=== PATIENT | male | born 1930 | race Caucasian/White ===

== ENCOUNTER 2016-09-11 11:35 | Inpatient (IN) | payer OTHER ==
--- NOTE | ~2016-09-11 | OP ---
Record Of Operation [facility] [address] [place]. [address] NAME: OLIVIER WILEY : 29 STATUS : ADM IN PAT#: [id number] AGE: 86 ADM/REG DATE : 09/11/16 MR#: [id number] REPORT SERV DATE: 09/17/16 DICTATED BY: REVIN JARA DATE: 09/16/16 REPORT STATUS : Draft TRANSCRIBED BY: MODL DATE: 09/16/16 DATE OF PROCEDURE: 09/14/2016 SURGEON: Dr. Ervin Jara. RESIDENT SURGEON: Ruddy Ordaz MD. PREOPERATIVE DIAGNOSIS: Incarcerated right inguinal hernia. POSTOPERATIVE DIAGNOSIS: Incarcerated right indirect inguinal hernia. PROCEDURE: Laparoscopic right inguinal hernia repair with mesh. COMPLICATIONS: None. ANESTHESIA: General. ESTIMATED BLOOD LOSS: 10 mL. FLUIDS: Approximately 1 L of crystalloid. INDICATION FOR PROCEDURES: An 86-year-old male who presented with small-bowel obstruction and right inguinal hernia. Right inguinal hernia was reducible; however, it was only transiently reproduced in the ER. It became incarcerated while being hospitalized. Once his electrolyte abnormalities and INR were resolved, patient was consented for operative repair of his right inguinal hernia. Risks, benefits, and alternatives were discussed at length with the patient, patient wished to proceed. DESCRIPTION OF OPERATION: After informed consent was obtained, the patient was brought back to the operating suite, placed in supine position. The patient was prepped and draped in normal sterile fashion after general endotracheal anesthesia. Infraumbilical transverse incision was made, and blunt dissection was carried down to the anterior fascia, the anterior fascia was sharply incised. Once the anterior fascia was sharply incised, the rectus muscle was retracted anteriorly and the space between the rectus muscle and peritoneum was created. A dissecting balloon was placed within the space around the pubis and the dissecting balloon was insufflated. This was done with the camera in place. Once the dissecting balloon was used and it was removed and a 10 mm balloon trocar was placed within the stay. The preperitoneal space was then insufflated. There was good inflation. The patient tolerated the insufflation. Two 5 mm trocars were placed in the midline in the suprapubic region. The was identified laterally just above the inguinal ligament. The indirect hernia lateral to the epigastric vessels were identified. The graspers were used to reduce the hernia contents. This hernia contained the loops of bowel. Once this was reduced back into the abdomen, the hernia sac was intact. Contents were reduced. An Endoloop was placed on the proximal aspect of the hernia sac and secured. Once this was done, the hernia sac was completely freed up off the cord structures. A piece of mesh was placed within the preperitoneal space. The mesh was oriented to cover the Record Of Operation [address] [address] NAME: OLIVIER WILEY : 29 STATUS : ADM IN PAT#: [id number] AGE: 86 ADM/REG DATE : 09/11/16 MR#: [id number] REPORT SERV DATE: 09/17/16 DICTATED BY: ERVIN JARA DATE: 09/16/16 REPORT STATUS : Draft TRANSCRIBED BY: JONATAN DATE: 09/16/16 internal inguinal ring as well as the direct and femoral spaces. The patient had no direct or femoral component to his hernia. A suture tacker was used to secure the mesh to the pubis and to anteriorly and lateral. Mesh tacked in good position, the pneumo was released. Trocars were then removed. The patient did have some air released into his pneumoperitoneum, so the peritoneum was incised at the umbilical incision to release the pneumoperitoneum. Once this was done, the umbilical incision was closed with 0 Vicryl. The skin incisions were closed with 4-0 Monocryl. Patient tolerated the procedure well, transferred to recovery in stable condition. DICTATED BY: Ruddy Ordaz MD CB/JONATAN Ervin Jara M.D. / [id number] CC: MD Abelardo Bah M.D.
--- NOTE | ~2016-09-11 | DS ---
Discharge Summary [facility] [address] [place]. [address] NAME: OLIVIER WILEY : 29 STATUS : DIS IN PAT#: [id number] AGE: 86 ADM/REG DATE : 09/11/16 MR#: [id number] REPORT SERV DATE: 09/18/16 DICTATED BY: ABDIRAHMAN DEAN DATE: 09/17/16 REPORT STATUS : Draft TRANSCRIBED BY: MODL DATE: 09/17/16 ADMISSION DATE: 09/11/2016 DISCHARGE DATE: 09/17/2016 DISCHARGE DIAGNOSES: 1. Partial small bowel obstruction, status post repair of incarcerated right inguinal hernia, postoperative day #3. 2. Acute kidney injury, resolved. 3. Hyperkalemia, resolved. 4. Paroxysmal atrial fibrillation, the patient had been on Coumadin, which has been resumed. 5. 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 Marvin York. 6. 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 CONSULTANTS: General Surgery. PROCEDURES: Repair of incarcerated right inguinal hernia performed on 09/14/2016. HOSPITAL COURSE: This is an 86-year-old gentleman with multiple past medical history as mentioned above who was admitted to the hospital with partial small bowel obstruction due to an incarcerated right inguinal hernia. For details, please refer to excellent H and P dictated by Dr. Nemesio Jones. In summary, the patient was admitted and was seen by General Surgery. The patient was treated with IV fluid hydration as well as NG tube decompression, however, the patient failed to respond. Decision was made by the General Surgery to take the patient to the OR for surgical repair of the incarcerated right inguinal hernia. In the meantime, the patient was medically optimized for the acute kidney injury as well as hyperkalemia that was associated with the acute kidney injury. The patient's coagulopathy from Coumadin was also reversed with vitamin K. The patient underwent repair of the right incarcerated inguinal hernia on 09/14/2016, and the patient tolerated the surgery really well. The patient actually showed fairly rapid recovery from the surgery, and by the second day after surgery, the patient was able to have a bowel movement as well as tolerate p.o. intake. On postop day #3, the patient was cleared for discharge from General Surgery. The patient is now being discharged home with close outpatient followup plans. Obviously, the patient does have quite a few underlying medical issues including severe peripheral artery disease with gangrene of his extremities. The patient will be seen and followed by Dr. Marvin York as an outpatient as the patient's peripheral gangrene is actually quite stable at this point in time. The patient is being discharged back home with home health. Also, the patient's Coumadin will be resumed. DISPOSITION: Home. DISCHARGE MEDICATIONS: No changes. FOLLOWUP: 1. Please follow up with PCP in the next one to two weeks. Discharge Summary [address] [address] NAME: OLIVIER WILEY : 29 STATUS : DIS IN PAT#: [id number] AGE: 86 ADM/REG DATE : 09/11/16 MR#: [id number] REPORT SERV DATE: 09/18/16 DICTATED BY: ABDIRAHMAN DEAN DATE: 09/17/16 REPORT STATUS : Draft TRANSCRIBED BY: JONATAN DATE: 09/17/16 2. Please follow up with Dr. Marvin York in the next two to three weeks. 3. Please follow up with Dr. Jara in the next two to three weeks. A total of 30 minutes spent in coordinating this patient's discharge today. DICTATED BY: Abdirahman Dean MD [facility]/JONATAN Abdirahman Dean MD / [id number] CC: MD Abelardo Bah M.D.
--- NOTE | ~2016-09-11 | HP ---
History And Physical [place] [id number] [facility] [place]. [address] NAME: OLIVIER HUGGINS : 29 STATUS : ADM IN PAT#: [id number] AGE: 86 ADM/REG DATE : 09/11/16 MR#: [id number] REPORT SERV DATE: 09/11/16 DICTATED BY: DATE: REPORT STATUS : Draft TRANSCRIBED BY: MODL DATE: 09/11/16 DATE OF ADMISSION: 09/11/2016 The [facility], attending Dr. Nemesio Jones. CHIEF COMPLAINT: Nausea, vomiting, diarrhea, abdominal pain. HISTORY OF PRESENT ILLNESS: Mr. Huggins is a pleasant 86-year-old white male, brought by family today because he has had minimal oral intake since Wednesday. Symptoms started on Wednesday with acute onset of abdominal pain, primarily in the right groin, where he noted some bulging and tenderness to palpation. He was unable to keep down any food or fluids starting Wednesday afternoon and also developed some diarrhea at this time. His symptoms were unrelenting, but the patient did not want to come to the emergency department until his family insisted that he come this morning, when he was becoming progressively weak and slightly confused. Here, he was found to have evidence of a right inguinal hernia. It could not be reduced by the emergency department physician. It was, however, successfully reduced by surgeon, Dr. Alfa Jara. The patient is currently resting comfortably and states "I do not have any problems." He has been able to take in some liquids by mouth without difficulty, however, CT scan of the abdomen and pelvis in the emergency department revealed a partial small-bowel obstruction related to the incarcerated hernia and labs here revealed acute kidney injury. Of note, the patient takes multiple diuretics and nephrotoxic medications for history of diastolic congestive heart failure and chronically runs a low blood pressure per his daughter at the bedside. His blood pressure here has been even lower than normal, with values 80/50. She reports that typically he is 90/60. The patient was also noted to be hyperkalemic with a potassium of 7.1 and has been treated with insulin, D50, bicarbonate, calcium gluconate here in the ER. He has been placed on IV fluids and is receiving normal saline at 200 mL an hour with current blood pressure of 90/60. Another concern of the patient's family is that he has been running into the wall with his motorized wheelchair recently and seems to have some nonhealing areas which are "black" in color, on the toes of both feet, right foot in particular. He has extensive neuropathy, but they note that his sensation seems worse than usual and that he does not seem to be healing. REVIEW OF SYSTEMS: Full 14-point review of systems is negative except as dictated in the history of present illness. CONSULTANTS: Primary care provider, Dr. Abelardo Ledesma; greenhouse assistant, Dr. Dieudonne Arita; financial associate, Dr. Duggan; machine clipper, Dr. Burgos; and urologist is Dr. Gary. The patient does not see a vascular doctor. History And Physical [address] [address] NAME: OLIVIER HUGGINS : 29 STATUS : ADM IN PAT#: [id number] AGE: 86 ADM/REG DATE : 09/11/16 MR#: [id number] REPORT SERV DATE: 09/11/16 DICTATED BY: DATE: REPORT STATUS : Draft TRANSCRIBED BY: MODL DATE: 09/11/16 PAST MEDICAL HISTORY: Includes, 1. Paroxysmal atrial fibrillation, on chronic Coumadin therapy. 2. Chronic right bundle branch block. 3. History of diastolic dysfunction. 4. History of cirrhosis with portal hypertension and splenomegaly. 5. Xtrhyzj-Couhi-Fjflq foot disease-functionally paraplegic. 6. Hypothyroidism. 7. History of cellulitis of bilateral lower extremities and testes. 8. History of a bladder tumor, status post resection. PAST SURGICAL HISTORY: Includes past bladder resection, bilateral knee surgery, excision of a pilonidal cyst, and carpal tunnel surgery. ALLERGIES: INCLUDE PENICILLIN, CEFADYL, LISINOPRIL, AND CLAMS. HOME MEDICATIONS: Include, 1. Vasotec 10 mg p.o. daily. 2. Proscar 5 mg p.o. q. evening. 3. Folic acid 1 mg p.o. daily. 4. Lasix 60 mg p.o. daily. 5. Neurontin 100 mg p.o. three times a day. 6. Grimes 7.5/325 one tablet p.o. daily as needed. 7. Levothyroxine 88 mcg p.o. daily. 8. Toprol-XL 50 mg p.o. daily. 9. Multivitamin one tablet p.o. daily. 10.Protonix 40 mg p.o. daily. 11.Potassium 20 mEq p.o. daily. 12.Spironolactone 50 mg p.o. daily. 13.Flomax 0.8 mg p.o. q.h.s. 14.Coumadin 2.5 mg p.o. q. Wednesday and Wednesday and 5 mg p.o. q. Wednesday, Wednesday, , and Wednesday. SOCIAL HISTORY: The patient is and resides with his . His daughter and a niece are here at the bedside. He appears to have a supportive family. He used to smoke, but quit tobacco 40 years ago. He does not use any alcohol or drugs. FAMILY HISTORY: Pertinent for heart disease, diabetes, and cancer. PHYSICAL EXAMINATION: VITAL SIGNS: Blood pressure 90/60, temperature 97.7, pulse 77, respirations 20, oxygen saturations 93% on room air. GENERAL: This is a thin chronically ill-appearing, bronzed-looking white male, in no acute distress. Alert and oriented in three dimensions. HEENT: Normocephalic, atraumatic. Pupils are equally round and reactive to light. No jaundice. Sinuses are not tender to palpation. There is no nasal drainage. Oropharynx is very dry with poor dentition. Tacky mucosae. History And Physical [address] [address] NAME: OLIVIER HUGGINS : 29 STATUS : ADM [facility]#: [id number] AGE: 86 ADM/REG DATE : 09/11/16 MR#: [id number] REPORT SERV DATE: 09/11/16 DICTATED BY: DATE: REPORT STATUS : Draft TRANSCRIBED BY: MODL DATE: 09/11/16 NECK: Supple with no jugular venous distention. No lymphadenopathy, no bruits and no thyromegaly. CARDIOVASCULAR: Regular rate and rhythm with no murmurs, rubs or gallops. LUNGS: Clear to auscultation bilaterally. No wheezes or crackles. No rhonchi. ABDOMEN: Soft, nontender, and nondistended with normoactive bowel sounds in four quadrants. EXTREMITIES: No cyanosis or clubbing. Extremities are very cool to the touch, with nonpalpable dorsalis pedis pulse on the left. There is evidence of possible dry gangrenous changes to the second toe on the right and evidence of bilateral onychomycosis. No evidence of rash or cellulitis. SKIN: Decreased skin turgor with bronzing as noted above. No rash or skin breakdown. NEUROLOGIC: Cranial nerves II through XII are tested and are intact. Deep tendon reflexes 2+ bilateral brachioradialis and patellar tendons. Sensation is greatly diminished in the lower extremities, essentially the patient has no sensation of fine touch or temperature in the legs. Strength is also globally diminished, 4/5 in the upper extremities and 3-/5 in the lower extremities. LABORATORY DATA: White blood cell count 12.8, hemoglobin 14.1, hematocrit 41.5, platelets 178. INR 4.3. Sodium 135, potassium 7.1, chloride 107, bicarb 18, BUN 98, creatinine 3.2, glucose 119, calcium 10. Total protein 9, albumin 4.3, direct bilirubin and indirect bilirubin normal, alkaline phosphatase 80, ALT 18, AST 17. IMAGIN. CT abdomen and pelvis without contrast, shows partial small-bowel obstruction, appear secondary to incarcerated right inguinal hernia containing a loop of small bowel. Small amount of fluid seen surrounding the loop. Colonic diverticulosis, but no diverticulitis. Prominent prostate. Cholelithiasis, but no acute cholecystitis. Stable left renal cyst. Mild cardiomegaly with heavy coronary artery calcification. 2. EKG shows wide QRS rhythm with a right bundle branch block and nonspecific T-wave depression in the lateral leads. When compared to prior EKGs from April 2016, the right bundle branch block and ST depressions are stable. There is no acute change. IMPRESSION: 1. Partial small-bowel obstruction due to incarcerated right inguinal hernia, now successfully reduced in the emergency department. 2. Acute kidney injury due to dehydration and nephrotoxic medications, possible acute tubular necrosis. 3. Hyperkalemia due to acute kidney injury and potassium supplementation. 4. Metabolic acidosis-rule out lactic acidosis, rule out sepsis. 5. Hypotension-family states somewhat chronic, with possible acute component due to dehydration. 6. Poor circulation in the lower extremities with possible early gangrenous changes in the right foot and decreased pulses in the left foot. 7. Elevated INR, on chronic Coumadin therapy. 8. Right bundle branch block-stable. 9. History of diastolic congestive heart failure without evidence of acute exacerbation. 10.History of cirrhosis and portal hypertension. 11.Paroxysmal atrial fibrillation-presently normal sinus rhythm. History And Physical [address] [address] NAME: OLIVIER HUGGINS : 29 STATUS : ADM IN PAT#: [id number] AGE: 86 ADM/REG DATE : 09/11/16 MR#: [id number] REPORT SERV DATE: 09/11/16 DICTATED BY: DATE: REPORT STATUS : Draft TRANSCRIBED BY: MODL DATE: 09/11/16 12.Awvqfnu-Cxkmh-Qmbsm foot disease with functional paraplegia. 13.Hypothyroidism. 14.History of cellulitis of bilateral lower extremities-none presently. 15.History of bladder tumor and enlarged prostate, status post resection. 16.History of osteoarthritis. 17.History of pilonidal cyst in the past. 18.History of carpal tunnel surgery remotely. PLAN: 1. Inpatient admission to [address] [place] [address], med/surg telemetry, attending Dr. Nemesio Jones. 2. We will consult Cardiology if needed, but suspect the patient's acute surgical issues are resolved at current and that the partial small-bowel obstruction should resolve with conservative measures only. 3. The patient is not currently experiencing any abdominal pain or distention and has not had any nausea or vomiting since the hernia was reduced, thus we will not utilize NG tube at present, but will allow for a clear liquid diet and copious IV fluids and oral hydration, with close monitoring of kidney functioning and electrolytes. 4. Stat labs in the emergency department have been requested including lactate, procalcitonin, repeat basic metabolic panel, and a troponin. These labs will be repeated in the morning, along with labs to evaluate hypothyroidism. 5. Repeat KUB in the morning to check for resolution of partial small-bowel obstruction. 6. Obtain arterial Doppler ultrasounds of the lower extremities and consider Vascular Surgery evaluation for the changes noted in the feet. 7. Hold Coumadin at present and recheck INR. No indication for active reversal at present. 8. Antiemetics and pain control if indicated. 9. Majority of home medications have been held due to hypotension, acute kidney injury, and hyperkalemia. Prostate medications and vitamins as well as thyroid medicine have been continued. 10.We will begin treatment with Kayexalate and consider repeat treatment with insulin, D50, bicarbonate pending results of stat basic metabolic panel currently pending. 11.Additional recommendations pending results of above. 55 minutes spent in completion of the admission and discussion of case with Surgery and the emergency department physician. EMMANUEL/JONATAN Nemesio Jones M.D. / [id number] CC: Nemesio Jones M.D. History And Physical [address] [address] NAME: OLIVIER HUGGINS : 29 STATUS : ADM IN PAT#: [id number] AGE: 86 ADM/REG DATE : 09/11/16 MR#: [id number] REPORT SERV DATE: 09/11/16 DICTATED BY: DATE: REPORT STATUS : Draft TRANSCRIBED BY: JONATAN DATE: 09/11/16 Abelardo Ledesma M.D. Randall Gary Jr., M.D. Dieudonne Arita M.D. Vj Duggan M.D. Lawson Burgos M.D.
--- NOTE | ~2016-09-11 | CN ---
Consultation Report [facility] [address] [place]. [address] NAME: OLIVIER WILEY : 29 STATUS : ADM IN PAT#: [id number] AGE: 86 ADM/REG DATE : 09/11/16 MR#: [id number] REPORT SERV DATE: 09/13/16 DICTATED BY: MARIANNE YEUNG DATE: 09/13/16 REPORT STATUS : Draft TRANSCRIBED BY: MODL DATE: 09/13/16 SURGERY CONSULT NOTE. DATE OF CONSULTATION: RESIDENT PHYSICIAN: Dr. Ruddy Ordaz. REASON FOR CONSULTATION: SBO secondary to right inguinal hernia. HISTORY OF PRESENT ILLNESS: This 86-year-old male, who presented on Wednesday to the ED with poor p.o. intake, abdominal pain, and right groin pain for the past three days. Workup revealed a partial small bowel obstruction secondary to a right inguinal hernia. Hernia was reduced in the ED. Same time, the patient was in severe acute kidney injury with hyperkalemia [place] [address] and his creatinine was 3.2 and INR of 6. The patient was admitted to the hospital and started on clear liquids and underwent medical optimization of his . The patient is doing well from a medical standpoint. His INR was correcting and is down to 2.1 today and his potassium is down to 5.3, BUN and creatinine are 52 and 1.6. The patient was admitted to the hospital and started on clears. The patient did not tolerate clears even despite his hernia being reduced. After an NG tube placed, he had [address] out in the first 24 hours. Today on exam, the patient had a right inguinal bulge that was able to be reduced. PAST MEDICAL HISTORY: Includes atrial fibrillation, for which he was on Coumadin, diastolic congestive heart failure with EF of 40% to 45% on echo in 2016, Charcot foot neuropathy, history of cirrhosis, history of bladder cancer, and portal hypertension. PAST SURGICAL HISTORY: Bilateral knee surgery. He had a TURP, transurethral bladder resection, and carpal tunnel release. ALLERGIES: PENICILLIN, CEFADYL, LISINOPRIL. REVIEW OF SYSTEMS: 10-point review of systems done and negative except for mentioned in the HPI. LABORATORY VALUES: Sodium 142, potassium 5.3, chloride 115, CO2 of 19, BUN 52, creatinine 1.6. INR 2.1. White blood cell count 5, hemoglobin 12, hematocrit 36, platelets 125. PHYSICAL EXAMINATION: VITAL SIGNS: Blood pressure 145/71, temperature 97.9, pulse 87, respirations 18. GENERAL: Alert and oriented. No acute distress. NECK: Supple. No lymphadenopathy. HEENT: Normocephalic, atraumatic. Extraocular muscles intact. LUNGS: Clear. ABDOMEN: Nontender, mildly distended, tympanitic, right groin with a bulge, this was Consultation Report [address] [address] NAME: OLIVIER WILEY : 29 STATUS : ADM IN PAT#: [id number] AGE: 86 ADM/REG DATE : 09/11/16 MR#: [id number] REPORT SERV DATE: 09/13/16 DICTATED BY: MARIANNE YEUNG DATE: 09/13/16 REPORT STATUS : Draft TRANSCRIBED BY: MODL DATE: 09/13/16 reduced with gentle palpation. Minimal tenderness over the right groin prior to reduction, no tenderness after reduction. No erythema or skin changes. NEURO: Intact. ASSESSMENT: This is an 86-year-old with reducible incarcerated right inguinal hernia with secondary bowel obstruction. PLAN: 1. The patient will need fixation of hernia once medically clear. Hernia has resolved at this time. There is a chance that this hernia will recur and will need fixation. 2. We will plan medically optimize the patient, correct his coagulopathy, and correct his hyperkalemia and acute kidney injury. We will try to fix hernia earlier this week once the patient is medically optimized. 3. We will continue the patient on n.p.o. IV fluids for now. Continue NG tube to low intermittent suction. DICTATED BY: Ruddy Ordaz MD CB/JONATAN Marianne Yeung MD / [id number] CC: MD Abelardo Garay M.D.
[2016-09-11 11:11] LABS: BASOPHILS 0.2 %; BASOPHILS ABSOLUTE 0.02 10/3/uL (0.0-0.16); EOSINOPHILS 0.6 %; EOSINOPHILS ABSOLUTE 0.08 10/3/uL (0.0-0.53); IMMATURE GRANULOCYTES 0.2 %; IMMATURE GRANULOCYTES ABSOLUTE 0.03 10/3/uL (0.0-0.11); LYMPHOCYTES 9.1 %; LYMPHOCYTES ABSOLUTE 1.16 10/3/uL (0.67-4.30); MEAN CORPUSCULAR HEMOGLOB 26.9 pg (26.0-34.0); MEAN CORPUSCULAR VOLUME 79.2 fL (80-100); MEAN PLATELET VOLUME 10.1 fL (9.2-13.0); MONOCYTES ABSOLUTE 0.89 10/3/uL (0.21-1.20); NEUTROPHILS 82.9 %; NEUTROPHILS ABSOLUTE 10.62 10/3/uL (2.02-8.40); PLATELET COUNT 178 10/3/uL (150-400); RED CELL COUNT 5.24 10/6/uL (4.7-6.1)
[2016-09-11 11:12] LABS: HEMATOCRIT 41.5 % (40.0-51.0); HEMOGLOBIN 14.1 g/dL (13.6-17.8); WHITE BLOOD CELLS 12.8 10/3/uL (4.5-10.5)
[2016-09-11 11:13] LABS: MANUAL DIFF NO %; RBC DISTRIBUTION WIDTH 20.8 % (12.0-16.0)
[2016-09-11 11:20] LABS: INTERNATIONAL NORMAL RATI 4.3 UNITS (-); PARTIAL THROMBO TIME 46.8 SEC (22.5-37.2); PROTIME (NOT ORD) 40.6 SEC (12.0-14.5)
[2016-09-11 11:25] LABS: CHLORIDE, SERUM 107 MMOL/L (96-112); DIRECT BILIRUBIN 0.3 MG/DL (0.0-0.4); SGOT(AST) 17 U/L (5-40); SGPT(ALT) 18 U/L (5-65)
[2016-09-11 11:26] LABS: A/G RATIO 0.9 (0.7-1.9); ALBUMIN 4.3 G/DL (3.5-5.0); ALKALINE PHOSPHATASE 80 U/L (45-117); BUN (BLOOD UREA NITROGEN) 98 MG/DL (6-23); CO2 (CARBON DIOXIDE) 18 MMOL/L (24-34); CREATININE 3.24 MG/DL (0.70-1.30); GFR AFRICAN AMERICAN 19 ML/MIN (>=60); GFR NON AFRICAN AMERICAN 16 ML/MIN (>=60); GLOBULIN 4.7 G/DL (2.5-4.1); GLUCOSE, SERUM 119 MG/DL (60-99); INDIRECT BILIRUBIN(NOT ORDER) 0.7 MG/DL (0.1-0.9)
[2016-09-11 11:33] LABS: SODIUM, SERUM 135 MMOL/L (135-148)
[~2016-09-11 11:35] MED LIST: C25 PO; C5 PO; CAYENNE PEPPER PO; DURICEF PO; FINASTERIDE PO; FLOMAX4 PO; FOLIC PO; KLOR-CON M2020 MEQ PO; L40 PO; LASIX PO; LEVOTHYROXIN100 MCG PO; LEVOTHYROXIN25 MCG PO; LISINOPRIL PO; LOP50 PO; LORT7 PO; LOVENOX120 SC; METOPROLOL PO; MULTIPLE VIT PO; NORCO PO; NORCO1 TA2 PO; PRIN5 PO; PROSCAR5 PO; PROTONIX PO; SPIRO25 PO; SPIRO50 PO; STEROID INJECTION IM; SYN1 PO; TOPXL100 PO; TYLENOL ARTH650 MG PO; VASOTEC2 PO; VASOTEC5 PO
[2016-09-11 11:38] LABS: POTASSIUM, SERUM 7.1 MMOL/L (3.5-5.3)
[2016-09-11] MEDS ORDERED: PROTONIX PO (14:04)
[2016-09-11] MEDS ORDERED: TOPXL50 PO (14:04)
[2016-09-11] MEDS ORDERED: KLOR-CON M2020 MEQ PO (14:07)
[2016-09-11] MEDS ORDERED: L20 PO (14:08)
[2016-09-11] MEDS ORDERED: C25 PO (14:09)
[2016-09-11] MEDS ORDERED: C5 PO (14:09)
[2016-09-11] MEDS ORDERED: VASOTEC10 PO (14:10)
[2016-09-11] MEDS ORDERED: PROSCAR5 PO (14:10)
[2016-09-11] MEDS ORDERED: SPIRO50 PO (14:10)
[2016-09-11] MEDS ORDERED: NEUR100 PO (14:11)
[2016-09-11] MEDS ORDERED: FLOMAX4 PO (14:11)
[2016-09-11] MEDS ORDERED: SYN88 PO (14:11)
[2016-09-11] MEDS ORDERED: MULTIVITAMI1 PO (14:12)
[2016-09-11] MEDS ORDERED: FOLIC PO (14:15)
[2016-09-11] MEDS ORDERED: NORCO1 TA2 PO (14:21)
[2016-09-11 15:33] LABS: TROPONIN I 0.04 NG/ML (<0.05)
[2016-09-11 15:57] LABS: WBC (NOT ORDERED) (RFLEX) 0 (0-5)
[2016-09-11 16:05] LABS: PROCALCITONIN 0.06 ng/mL (<0.5)
[2016-09-11 16:08] LABS: ASCORBIC ACID (UR NOT ORDER) NEG (NEG); BILIRUBIN, URINE NEGATIVE (NEG); ER URINALYSIS TAT 0 Hrs 11 Mins; KETONE, URINE NEGATIVE (NEG); LEUKOCYTE ESTERASE(NOT OR NEG (NEG); NITRITE (URINE) NEG (NEG)
[2016-09-11 17:07] LABS: CALCIUM, SERUM 9.7 MG/DL (8.5-10.4); CHLORIDE, SERUM 108 MMOL/L (96-112); CO2 (CARBON DIOXIDE) 21 MMOL/L (24-34); CREATININE 3.03 MG/DL (0.70-1.30); GFR AFRICAN AMERICAN 20 ML/MIN (>=60); GFR NON AFRICAN AMERICAN 18 ML/MIN (>=60); SODIUM, SERUM 138 MMOL/L (135-148)
[2016-09-11 17:08] LABS: BUN (BLOOD UREA NITROGEN) 94 MG/DL (6-23); GLUCOSE, SERUM 52 MG/DL (60-99); TROPONIN I 0.05 NG/ML (<0.05)
[2016-09-12 02:17] LABS: HEMATOCRIT 38.8 % (40.0-51.0); HEMOGLOBIN 13.3 g/dL (13.6-17.8); MEAN CORPUS HGB CONC 34.3 g/dL (32.0-36.0); MEAN CORPUSCULAR HEMOGLOB 27.3 pg (26.0-34.0); MEAN CORPUSCULAR VOLUME 79.5 fL (80-100); MEAN PLATELET VOLUME 9.7 fL (9.2-13.0); PLATELET COUNT 151 10/3/uL (150-400); RBC DISTRIBUTION WIDTH 20.5 % (12.0-16.0); RED CELL COUNT 4.88 10/6/uL (4.7-6.1); WHITE BLOOD CELLS 10.4 10/3/uL (4.5-10.5)
[2016-09-12 02:19] LABS: MANUAL DIFF YES %
[2016-09-12 02:26] LABS: INTERNATIONAL NORMAL RATI 5.5 UNITS (-); PROTIME (NOT ORD) 49.5 SEC (12.0-14.5)
[2016-09-12 02:40] LABS: BUN (BLOOD UREA NITROGEN) 87 MG/DL (6-23); CALCIUM, SERUM 9.2 MG/DL (8.5-10.4); CHLORIDE, SERUM 110 MMOL/L (96-112); CO2 (CARBON DIOXIDE) 18 MMOL/L (24-34); FREE T4 1.44 NG/DL (0.76-1.46); GFR AFRICAN AMERICAN 23 ML/MIN (>=60); GFR NON AFRICAN AMERICAN 20 ML/MIN (>=60); GLUCOSE, SERUM 140 MG/DL (60-99); POTASSIUM, SERUM 6.1 MMOL/L (3.5-5.3); SODIUM, SERUM 136 MMOL/L (135-148); TROPONIN I 0.04 NG/ML (<0.05)
[2016-09-12 03:10] LABS: LYMPHOCYTES 5 %; LYMPHOCYTES ABSOLUTE (CALC) 0.52 10/3/uL (0.67-4.30); MONOCYTES 3 %; MONOCYTES ABSOLUTE (CALC) 0.31 10/3/uL (0.21-1.20); NEUTROPHILS ABSOLUTE (CALC) 9.57 10/3/uL (2.02-8.40); SEGMENTED NEUTROPHIL (0) 92 %; TOTAL NUCLEATED CELLS 100
[2016-09-12 03:12] LABS: ANISOCYTOSIS 1+ (5-10/OIF) (0-5/OIF); ELLIPTOCYTES 1+ (3-10/OIF) (0-2/OIF); PLATELET ESTIMATE ADQ (ADEQUATE)
[2016-09-12 08:28] LABS: INTERNATIONAL NORMAL RATI 6.1 UNITS (-); PROTIME (NOT ORD) 54.1 SEC (12.0-14.5)
[2016-09-12 12:25] LABS: INTERNATIONAL NORMAL RATI 6.5 UNITS (-); PROTIME (NOT ORD) 56.4 SEC (12.0-14.5)
[2016-09-12 12:29] LABS: CALCIUM, SERUM 9.2 MG/DL (8.5-10.4); CHLORIDE, SERUM 109 MMOL/L (96-112); CO2 (CARBON DIOXIDE) 21 MMOL/L (24-34); CREATININE 2.33 MG/DL (0.70-1.30); GFR AFRICAN AMERICAN 28 ML/MIN (>=60); GFR NON AFRICAN AMERICAN 24 ML/MIN (>=60); GLUCOSE, SERUM 155 MG/DL (60-99); POTASSIUM, SERUM 5.8 MMOL/L (3.5-5.3); SODIUM, SERUM 136 MMOL/L (135-148)
[2016-09-12 12:31] LABS: BUN (BLOOD UREA NITROGEN) 67 MG/DL (6-23)
[2016-09-13 06:07] LABS: BASOPHILS 0.2 %; BASOPHILS ABSOLUTE 0.01 10/3/uL (0.0-0.16); EOSINOPHILS 1.6 %; EOSINOPHILS ABSOLUTE 0.08 10/3/uL (0.0-0.53); HEMATOCRIT 36.7 % (40.0-51.0); HEMOGLOBIN 12.2 g/dL (13.6-17.8); LYMPHOCYTES 14.7 %; LYMPHOCYTES ABSOLUTE 0.73 10/3/uL (0.67-4.30); MEAN CORPUS HGB CONC 33.2 g/dL (32.0-36.0); MEAN CORPUSCULAR VOLUME 81.2 fL (80-100); MEAN PLATELET VOLUME 9.6 fL (9.2-13.0); MONOCYTES ABSOLUTE 0.84 10/3/uL (0.21-1.20); NEUTROPHILS 66.5 %; NEUTROPHILS ABSOLUTE 3.29 10/3/uL (2.02-8.40); PLATELET COUNT 125 10/3/uL (150-400); RBC DISTRIBUTION WIDTH 20.6 % (12.0-16.0); RED CELL COUNT 4.52 10/6/uL (4.7-6.1)
[2016-09-13 06:12] LABS: INTERNATIONAL NORMAL RATI 2.1 UNITS (-)
[2016-09-13 06:14] LABS: PROTIME (NOT ORD) 23.3 SEC (12.0-14.5)
[2016-09-13 06:16] LABS: MANUAL DIFF NO %
[2016-09-13 06:18] LABS: CALCIUM, SERUM 9.2 MG/DL (8.5-10.4); CHLORIDE, SERUM 115 MMOL/L (96-112); CO2 (CARBON DIOXIDE) 19 MMOL/L (24-34); POTASSIUM, SERUM 5.3 MMOL/L (3.5-5.3); SODIUM, SERUM 142 MMOL/L (135-148)
[2016-09-13 06:20] LABS: BUN (BLOOD UREA NITROGEN) 52 MG/DL (6-23); CREATININE 1.66 MG/DL (0.70-1.30); GFR AFRICAN AMERICAN 42 ML/MIN (>=60); GFR NON AFRICAN AMERICAN 37 ML/MIN (>=60); GLUCOSE, SERUM 109 MG/DL (60-99)
[2016-09-14 06:49] LABS: HEMOGLOBIN 12.3 g/dL (13.6-17.8); MEAN CORPUS HGB CONC 33.2 g/dL (32.0-36.0); MEAN CORPUSCULAR HEMOGLOB 27.2 pg (26.0-34.0); MEAN CORPUSCULAR VOLUME 81.9 fL (80-100); MEAN PLATELET VOLUME 10.5 fL (9.2-13.0); PLATELET COUNT 136 10/3/uL (150-400); RBC DISTRIBUTION WIDTH 20.4 % (12.0-16.0); RED CELL COUNT 4.52 10/6/uL (4.7-6.1)
[2016-09-14 06:50] LABS: MANUAL DIFF YES %
[2016-09-14 06:54] LABS: INTERNATIONAL NORMAL RATI 1.3 UNITS (-)
[2016-09-14 06:55] LABS: PROTIME (NOT ORD) 16.3 SEC (12.0-14.5)
[2016-09-14 07:02] LABS: BUN (BLOOD UREA NITROGEN) 44 MG/DL (6-23); CALCIUM, SERUM 9.5 MG/DL (8.5-10.4); CHLORIDE, SERUM 114 MMOL/L (96-112); CO2 (CARBON DIOXIDE) 21 MMOL/L (24-34); CREATININE 1.42 MG/DL (0.70-1.30); GFR AFRICAN AMERICAN 51 ML/MIN (>=60); GFR NON AFRICAN AMERICAN 44 ML/MIN (>=60); GLUCOSE, SERUM 105 MG/DL (60-99); POTASSIUM, SERUM 5.2 MMOL/L (3.5-5.3); SODIUM, SERUM 143 MMOL/L (135-148)
[2016-09-14 07:47] LABS: ANISOCYTOSIS 1+ (5-10/OIF) (0-5/OIF); BAND NEUTROPHILS 6 %; IMMATURE GRANS ABSOLUTE (CALC) 0.04 10/3/uL (0.0-0.11); LYMPHOCYTES 15 %; METAMYELOCYTES 1 %; MONOCYTES 6 %; MONOCYTES ABSOLUTE (CALC) 0.24 10/3/uL (0.21-1.20); NEUTROPHILS ABSOLUTE (CALC) 3.12 10/3/uL (2.02-8.40); PLATELET ESTIMATE SLT DEC (ADEQUATE); SEGMENTED NEUTROPHIL (0) 72 %; TOTAL NUCLEATED CELLS 100
[2016-09-15 08:27] LABS: BASOPHILS 0 %; EOSINOPHILS 0.2 %; EOSINOPHILS ABSOLUTE 0.01 10/3/uL (0.0-0.53); HEMATOCRIT 37.9 % (40.0-51.0); HEMOGLOBIN 12.7 g/dL (13.6-17.8); IMMATURE GRANULOCYTES 0.2 %; IMMATURE GRANULOCYTES ABSOLUTE 0.01 10/3/uL (0.0-0.11); LYMPHOCYTES 11.5 %; LYMPHOCYTES ABSOLUTE 0.59 10/3/uL (0.67-4.30); MEAN CORPUS HGB CONC 33.5 g/dL (32.0-36.0); MEAN CORPUSCULAR HEMOGLOB 27.9 pg (26.0-34.0); MEAN CORPUSCULAR VOLUME 83.3 fL (80-100); MEAN PLATELET VOLUME 9.9 fL (9.2-13.0); MONOCYTES 12.9 %; MONOCYTES ABSOLUTE 0.66 10/3/uL (0.21-1.20); NEUTROPHILS 75.2 %; NEUTROPHILS ABSOLUTE 3.86 10/3/uL (2.02-8.40); PLATELET COUNT 127 10/3/uL (150-400); RBC DISTRIBUTION WIDTH 19.6 % (12.0-16.0); RED CELL COUNT 4.55 10/6/uL (4.7-6.1); WHITE BLOOD CELLS 5.1 10/3/uL (4.5-10.5)
[2016-09-15 08:28] LABS: MANUAL DIFF NO %
[2016-09-15 08:32] LABS: INTERNATIONAL NORMAL RATI 1.3 UNITS (-); PROTIME (NOT ORD) 16.1 SEC (12.0-14.5)
[2016-09-15 08:41] LABS: CHLORIDE, SERUM 115 MMOL/L (96-112); CO2 (CARBON DIOXIDE) 20 MMOL/L (24-34); CREATININE 1.24 MG/DL (0.70-1.30); GFR AFRICAN AMERICAN 60 ML/MIN (>=60); GFR NON AFRICAN AMERICAN 52 ML/MIN (>=60); POTASSIUM, SERUM 5.1 MMOL/L (3.5-5.3); SODIUM, SERUM 141 MMOL/L (135-148)
[2016-09-15 08:43] LABS: BUN (BLOOD UREA NITROGEN) 40 MG/DL (6-23); GLUCOSE, SERUM 133 MG/DL (60-99)
[2016-09-15 08:53] LABS: ANISOCYTOSIS 1+ (5-10/OIF) (0-5/OIF); BURR CELLS 1+ (3-10/OIF) (0-2/OIF); ELLIPTOCYTES 1+ (3-10/OIF) (0-2/OIF); PLATELET ESTIMATE DEC (ADEQUATE); POIKILOCYTOSIS 1+ (5-10/OIF) (0-5/OIF)
[2016-09-16 09:37] LABS: CALCIUM, SERUM 8.9 MG/DL (8.5-10.4); CHLORIDE, SERUM 110 MMOL/L (96-112); CO2 (CARBON DIOXIDE) 20 MMOL/L (24-34); GFR AFRICAN AMERICAN 63 ML/MIN (>=60); GFR NON AFRICAN AMERICAN 54 ML/MIN (>=60); SODIUM, SERUM 139 MMOL/L (135-148)
[2016-09-16 09:40] LABS: BUN (BLOOD UREA NITROGEN) 30 MG/DL (6-23); GLUCOSE, SERUM 91 MG/DL (60-99); POTASSIUM, SERUM 4.4 MMOL/L (3.5-5.3)
[2016-09-17 06:12] LABS: BASOPHILS 0.1 %; BASOPHILS ABSOLUTE 0.01 10/3/uL (0.0-0.16); EOSINOPHILS 0.5 %; EOSINOPHILS ABSOLUTE 0.04 10/3/uL (0.0-0.53); HEMATOCRIT 34.3 % (40.0-51.0); HEMOGLOBIN 11.6 g/dL (13.6-17.8); IMMATURE GRANULOCYTES 0.2 %; IMMATURE GRANULOCYTES ABSOLUTE 0.02 10/3/uL (0.0-0.11); LYMPHOCYTES 6.3 %; LYMPHOCYTES ABSOLUTE 0.56 10/3/uL (0.67-4.30); MEAN CORPUS HGB CONC 33.8 g/dL (32.0-36.0); MEAN CORPUSCULAR HEMOGLOB 27.7 pg (26.0-34.0); MEAN CORPUSCULAR VOLUME 81.9 fL (80-100); MEAN PLATELET VOLUME 9.7 fL (9.2-13.0); MONOCYTES 9.9 %; MONOCYTES ABSOLUTE 0.87 10/3/uL (0.21-1.20); NEUTROPHILS ABSOLUTE 7.33 10/3/uL (2.02-8.40); PLATELET COUNT 132 10/3/uL (150-400); RBC DISTRIBUTION WIDTH 18.9 % (12.0-16.0); RED CELL COUNT 4.19 10/6/uL (4.7-6.1)
[2016-09-17 06:13] LABS: MANUAL DIFF NO %; WHITE BLOOD CELLS 8.8 10/3/uL (4.5-10.5)
[2016-09-17 06:17] LABS: INTERNATIONAL NORMAL RATI 1.4 UNITS (-); PROTIME (NOT ORD) 16.7 SEC (12.0-14.5)
[2016-09-17 06:28] LABS: CALCIUM, SERUM 8.7 MG/DL (8.5-10.4); CHLORIDE, SERUM 107 MMOL/L (96-112); CO2 (CARBON DIOXIDE) 22 MMOL/L (24-34); CREATININE 1.09 MG/DL (0.70-1.30); GFR AFRICAN AMERICAN 70 ML/MIN (>=60); GFR NON AFRICAN AMERICAN 61 ML/MIN (>=60); GLUCOSE, SERUM 105 MG/DL (60-99); POTASSIUM, SERUM 3.7 MMOL/L (3.5-5.3); SODIUM, SERUM 137 MMOL/L (135-148)
[2016-09-17 06:29] LABS: BUN (BLOOD UREA NITROGEN) 26 MG/DL (6-23)
[2016-10-09] MEDS ORDERED: LEVAQUIN750 MG PO (15:28)
[2016-10-12] MEDS ORDERED: FOLIC PO (17:14)
[2016-10-12] MEDS ORDERED: PROSCAR5 PO (17:14)
[2016-10-12] MEDS ORDERED: VASOTEC2 PO (17:14)
[2016-10-12] MEDS ORDERED: NEUR100 PO ×2 (17:15)
[2016-10-12] MEDS ORDERED: NORCO1 TA2 PO (17:15)
[2016-10-12] MEDS ORDERED: L40 PO (17:15)
[2016-10-12] MEDS ORDERED: LEVAQUIN750 MG PO (17:16)
[2016-10-12] MEDS ORDERED: SYN88 PO (17:16)
[2016-10-12] MEDS ORDERED: MULTIPLE VIT PO (17:17)
[2016-10-12] MEDS ORDERED: PROTONIX PO (17:17)
[2016-10-12] MEDS ORDERED: KLOR-CON M2020 MEQ PO (17:17)
[2016-10-12] MEDS ORDERED: TOPXL25 PO (17:17)
[2016-10-12] MEDS ORDERED: FLOMAX4 PO (17:18)
[2016-10-12] MEDS ORDERED: C25 PO (17:18)
[2016-10-12] MEDS ORDERED: SPIRO50 PO (17:18)
[2016-10-12] MEDS ORDERED: C5 PO (17:19)
== END 2016-09-17 14:05 | disposition home health service (06) | DRG 353 ==
LOC: ER 11:35 → 4SO 15:16
PROVIDERS: Emergency Medicine; Hospitalist; Internal Medicine; Nurse Practitioner Family
PROC: 0WUF4JZ Supplement Abdominal Wall with Synthetic Substitute, Percutaneous Endoscopic Approach (ICD-10-PCS; principal; 2016-09-11)
DX: K40.30 Unilateral inguinal hernia, with obstruction, without gangrene, not specified as recurrent (principal); N17.0 Acute kidney failure with tubular necrosis; E87.2 Acidosis; I50.32 Chronic diastolic (congestive) heart failure; I96 Gangrene, not elsewhere classified; I95.9 Hypotension, unspecified; E87.5 Hyperkalemia; I48.0 Paroxysmal atrial fibrillation; G60.0 Hereditary motor and sensory neuropathy; K74.69 Other cirrhosis of liver; K57.30 Diverticulosis of large intestine without perforation or abscess without bleeding; K80.20 Calculus of gallbladder without cholecystitis without obstruction; E86.0 Dehydration; F44.4 Conversion disorder with motor symptom or deficit; E03.9 Hypothyroidism, unspecified; I45.10 Unspecified right bundle-branch block; Z79.01 Long term (current) use of anticoagulants; Z79.899 Other long term (current) drug therapy; Z87.891 Personal history of nicotine dependence; Z88.0 Allergy status to penicillin; Z91.013 Allergy to seafood; Z88.8 Allergy status to other drugs, medicaments and biological substances
CPT/HCPCS: 74000; 74176; 80048; 80053; 81001; 82248; 83605; 83735; 84132; 84145; 84439; 84443; 84484; 85025; 85610; 85730; 93005; 93925; 96374; 96375; 96376; 99285; A9270-GY; C1726; C1781; C9113; J0610; J0690; J1170; J2405; J2710; J3010; J3430